=== PATIENT | male | born 1950 | race Caucasian/White ===

== ENCOUNTER 2019-10-16 02:32 | Emergency (ER) | payer MEDICARE, BC, SELFPAY ==
[2019-10-16 02:39] VITALS: BP 126/71; PULSE 88; RESP 13; TEMP 36.8; O2SAT 97
--- NOTE | 2019-10-16 02:41 | W.ED.GENAD ---
Discharge Plan Disposition Patient Disposition: HOME Condition: Stable Discharge Details Chief Complaint: RespSymp Clinical Impression: COPD exacerbation Primary Care Provider: Unknown,Unknown ED Provider: Chad Mccarthy Home Meds and New Rx's Prescriptions: New prednisone 20 mg tablet 60 mg PO DAILY 4 Days Qty: 12 RF: 0 No Action phenelzine [Nardil] 15 mg Tablet 30 mg RF: 0 Discharge Instructions Instructions: COPD (Chronic Obstructive Pulmonary Disease) (ED) Additional Instructions: follow up with your primary care provider within 1-2 weeks if you feel more ill, have worsening shortness of breath or severe pain return to the emergency department Medical Decision Making 69 yo male with hx of copd and continued smoking who comes in with chief complaint of dyspnea for several days. Denies any chest pain or pressure, no fevers or cough. He states it feels like his prior episodes of copd exacerbations where he requires prednisone. He arrives ambulatory in no distress with a home o2 machine he states he uses as needed. He has wheezing in all lung hinson, able to speak in full sentences. Suspect copd exacerbation, will tx with duoneb and prednisone. Given lack of cough or fevers doubt pna and do not feel xray indicated. Unlikely covid 19 given no cough or fevers. Physical exam is consistent with copd and has no evidence of dvt, pleuritic chest pain or jvd or leg edema so doubt chf or PE and no chest pain/pressure to suggest acs pt feels much better after prednisone and neb and requests d/c. Only has mild apical wheezing. I feel he's low risk for covid19 but recommended testing as ouatpeitn but he declined. He will self quarantine at home until asymptomatic for 3 days. Will f/u with pcp as needed and return precautions given Differential Diagnosis Differential Diagnosis: copd, pneumonia, bronchitis ECG Data Attestation: I personally reviewed and interpreted this ECG (s) as follows: Prior ECG tracings: not available for review Interpretation: sinus rhythm, rate of 78, pr 140, qtc 442, no acute ischemic changes HPI General Mode of arrival: ambulatory. Date/Time Provider Initiated Documentation: 10/16/19 02:33. Limitations to Documentation: no limitations. Information obtained by: patient. History of Present Illness 69 year old M presents to the emergency department with the chief complaint of shortness of breath, described as moderate, and it has been constant. No relieving factors improve symptom(s), No exacerbating factors reported . Patient notes no other symptoms.. Related Data Home Medications Medication Instructions Recorded Confirmed phenelzine [Nardil] 30 mg 10/16/19 prednisone 60 mg PO DAILY 4 Days #12 tab 10/16/19 Previous Rx's Medication Instructions Recorded prednisone 60 mg PO DAILY 4 Days #12 tab 10/16/19 Allergies Allergy/AdvReac Type Severity Reaction Status Date / Time No Known Allergies Allergy Unverified 10/16/19 02:47 Review of Systems All systems reviewed & are unremarkable except as noted in HPI and below Constitutional Constitutional: Denies chills, Denies fever(s) and Denies weakness Cardiovascular Cardiovascular: Denies chest pain Respiratory Respiratory: Denies cough Gastrointestinal Gastrointestinal: Denies abdominal pain, Denies nausea and Denies vomiting Genitourinary Genitourinary: Denies dysuria Musculoskeletal Musculoskeletal: Denies joint swelling Integumentary/Breasts Skin/Breast: Denies rash Neurologic Neurologic: Denies weakness [facility] Social History Smoking/Tobacco Use Status: Current every day Tobacco Type: cigarettes Alcohol Intake: never Substance use type: does not use Do you feel safe at home: No Exam Const General: no acute distress Orientation: alert HENMT Head: normal to inspection Ears: external ears normal General nose exam: external nose normal Mouth: moist mucous membranes Eyes General: appearance normal, both eyes and all related structures Neck Neck: normal visual inspection Resp Effort & Inspection: normal respiratory effort and able to speak in complete sentences Cardio Rate: regular rate Skin General skin exam: no rashes or lesions noted Neuro General: patient alert and patient oriented x3 Extrem General: normal to inspection Psych Mental Status: mental status grossly normal
[2019-10-16] MEDS: predniSONE 20 MG TAB 60 MG PO (02:55)
[2019-10-16] MEDS: Albuterol/Ipratropium 3 ML UPD VIAL UPD (02:55)
[2019-10-16 03:30] VITALS: RESP 16; O2SAT 99
== END 2019-10-16 03:45 | disposition home or self-care (01) ==
PROVIDERS: Emergency Provider Emergency Medicine
DX: J44.1 Chronic obstructive pulmonary disease with (acute) exacerbation (principal); F17.210 Nicotine dependence, cigarettes, uncomplicated
CPT/HCPCS: 93005; 94640; 99284; 93010; J7512; J7620